=== PATIENT | female | born 1975 | race Caucasian/White ===

== ENCOUNTER 2018-09-04 16:50 | Observation (INO) | payer MEDICARE, MEDICAID ==
[2018-09-04] MEDS ORDERED: SODIUM CHLORIDE 0.9% FLUSH 10 ML SOL IV PRN (17:02)
[2018-09-04 17:07] LABS: BASOPHILS % (AUTO) 0 % (0-3); EOSINOPHILS % (AUTO) 0 % (0-9); HEMATOCRIT 41 % (35-47); HEMOGLOBIN 13.4 gm/dl (12.0-15.5); LYMPHOCYTES % (AUTO) 21.1 % (10-50); MEAN CORPUSCULAR HGB CONC 32.9 gm/dl (32.0-36.0); MEAN CORPUSCULAR VOLUME 88 fL (81-99); MONOCYTES % (AUTO) 4.4 % (0-12); NEUTROPHILS % (AUTO) 74.1 % (37-80)
[2018-09-04] MEDS ORDERED: ONDANSETRON HCL 4 MG/2 ML SOL ONE (17:09)
[2018-09-04] MEDS ORDERED: CLONIDINE 0.1 MG TAB PO ONE (17:12)
[2018-09-04] MEDS ORDERED: ONDANSETRON HCL 4 MG/2 ML SOL IV ONE (17:13)
[2018-09-04] MEDS ORDERED: SODIUM CHLORIDE 0.9% 1000ML 1,000 ML IV ONE ×3 (17:15→18:53)
[2018-09-04] MEDS ORDERED: CLONIDINE 0.1 MG TAB ONE (17:16)
[2018-09-04 17:27] LABS: INR 1.03 (0.86-1.12)
[2018-09-04] MEDS ORDERED: GABAPENTIN 300 MG CAP PO SCH (17:30)
[2018-09-04] MEDS ORDERED: GABAPENTIN 300 MG CAP ONE (17:31)
[2018-09-04 17:39] LABS: ALBUMIN 3.3 gm/dl (3.4-5.0); ALKALINE PHOSPHATASE 87 IU/L (46-116); ALT 14 IU/L (14-63); AST 14 IU/L (15-37); BILIRUBIN,DIRECT 0.1 mg/dl (0.0-0.2); BILIRUBIN,TOTAL 0.4 mg/dl (0.2-1.0); BLOOD UREA NITROGEN 6 mg/dl (7-18); CALCIUM 8.6 mg/dl (8.5-10.1); CHLORIDE 105 mMol/L (98-107); CREATININE 0.65 mg/dl (0.60-1.00); GLUCOSE 101 mg/dl (74-106); POTASSIUM 4.1 mMol/L (3.5-5.1); SODIUM 141 mMol/L (136-145); TOTAL PROTEIN 6.6 gm/dl (6.4-8.2); TROP I < 0.017 ng/ml (0.000-0.056)
[2018-09-04 18:48] LABS: AMPHETAMINES NEGATIVE (NEGATIVE); BARBITUATES NEGATIVE (NEGATIVE); BENZODIAZEPINES NEGATIVE (NEGATIVE); CANNABINOL(THC) NEGATIVE (NEGATIVE); COCAINE(COC) NEGATIVE (NEGATIVE); METHADONE POSITIVE (NEGATIVE); METHAMPHETAMINES NEGATIVE (NEGATIVE); OPIATES(OPI) NEGATIVE (NEGATIVE); OXYCODONE(OXY) NEGATIVE (NEGATIVE); PROPOXYPHENE(PPX) NEGATIVE (NEGATIVE); TRICYCLIC ANTIDEPRESSANTS NEGATIVE (NEGATIVE)
[2018-09-04] MEDS ORDERED: LORAZEPAM 2 MG/ML 10ML MDV 2 MG/ML VIAL IV PRN ×2 (19:42→20:51)
[2018-09-04] MEDS ORDERED: LORAZEPAM 2 MG/ML SOL ONE ×2 (19:43→22:06)
[2018-09-04 20:39] VITALS: BP 98/64; PULSE 65; RESP 18; TEMP 98; O2SAT 97
[2018-09-04] MEDS ORDERED: ONDANSETRON HCL 4 MG/2 ML SOL IV PRN (20:53)
[2018-09-04] MEDS ORDERED: CLONIDINE 0.1 MG TAB PO SCH (21:00)
[2018-09-04] MEDS ORDERED: LORAZEPAM 2 MG/ML SOL IV PRN (21:59)
[2018-09-04] MEDS ORDERED: NICOTINE 7 MG PATCH TD SCH (22:00)
[2018-09-05] MEDS ORDERED: LORAZEPAM 0.5 MG TAB PO PRN (02:47)
[2018-09-05] MEDS ORDERED: GABAPENTIN 300 MG CAP PO SCH ×4 (06:30→21:00)
[2018-09-05] MEDS ORDERED: CYANOCOBALAMIN 1000 MCG/ML SOL IM SCH (06:30)
[2018-09-05] MEDS ORDERED: GABAPENTIN PO SCH ×2 (08:00→21:00)
[2018-09-05] MEDS ORDERED: CETIRIZINE HYDROCHLORIDE 10 MG TAB PO SCH (09:00)
[2018-09-05] MEDS ORDERED: METHADONE HYDROCHLORIDE PO SCH (09:00)
[2018-09-05] MEDS ORDERED: CHOLECALCIFEROL 1,000 IU TAB PO SCH (09:00)
[2018-09-05] MEDS ORDERED: LURASIDONE HYDROCHLORIDE 80 MG PO SCH (18:00)
== END 2018-09-05 07:35 | disposition home or self-care (01) | DRG 897 ==
LOC: ED 16:50 → ACUTE CARE 18:37 → UNDOADMOB 18:37 → ACUTE CARE 20:10
PROVIDERS: ADMIT Family Medicine; ATTEND Family Medicine
DX: F19.939 Other psychoactive substance use, unspecified with withdrawal, unspecified (principal); F11.23 Opioid dependence with withdrawal; R55 Syncope and collapse; I25.10 Atherosclerotic heart disease of native coronary artery without angina pectoris; I50.9 Heart failure, unspecified; I10 Essential (primary) hypertension
CPT/HCPCS: 36415; 70450; 80048; 80076; 80305; 84484; 85025; 85610; 85730; 93005; 96365; 96374; 96375; 99217; 99218; 99291; J2060; J2405; A9270-GY